=== PATIENT | male | born 1960 | race Two or more races ===

== ENCOUNTER 2024-09-03 14:10 | Emergency (ER) | payer MEDICARE, MEDICAID ==
[~2024-09-03] VITALS: Ht 167.6 cm; Wt 90.9 kg
[2024-09-03 14:43] VITALS: BP 128/80; PULSE 66; RESP 18; TEMP 97.8; O2SAT 97
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
== END 2024-09-03 15:44 | disposition home or self-care (01) ==
LOC: EDUNIT# 14:10 → EDBD 14:10 → ER 14:14
DX: S39.012A Strain of muscle, fascia and tendon of lower back, initial encounter (principal); S80.12XA Contusion of left lower leg, initial encounter; V89.2XXA Person injured in unspecified motor-vehicle accident, traffic, initial encounter; Y93.89 Activity, other specified; Y92.410 Unspecified street and highway as the place of occurrence of the external cause; Y99.8 Other external cause status
CPT/HCPCS: 72100; 73590